=== PATIENT | male | born 1995 | race Caucasian/White ===

== ENCOUNTER → 2019-06-02 13:43 | Outpatient (BNVA) | payer BC, MEDICAID, SELFPAY | PROVIDERS: Family Provider Registered Nurse; PCP Registered Nurse; Visit Provider Registered Nurse | DX: R68.89 Other general symptoms and signs (principal); J06.9 Acute upper respiratory infection, unspecified | CPT/HCPCS: 87804 ==

== ENCOUNTER → 2020-02-24 17:01 | Outpatient (BNVA) | payer BC, MEDICAID, SELFPAY | PROVIDERS: Family Provider Registered Nurse; PCP Registered Nurse; Visit Provider Registered Nurse | DX: R53.83 Other fatigue (principal) | CPT/HCPCS: 80053; 84443; 85025 ==

== ENCOUNTER → 2020-03-10 09:59 | Outpatient (BNVA) | payer BC, MEDICAID, SELFPAY | PROVIDERS: Family Provider Registered Nurse; PCP Registered Nurse; Visit Provider Nurse Practitioner Family | DX: J02.9 Acute pharyngitis, unspecified (principal); J02.8 Acute pharyngitis due to other specified organisms; B96.89 Other specified bacterial agents as the cause of diseases classified elsewhere | CPT/HCPCS: 87880 ==

== ENCOUNTER → 2020-07-05 10:28 | Outpatient (BNVA) | payer BC, MEDICAID, SELFPAY | PROVIDERS: Family Provider Registered Nurse; PCP Registered Nurse; Visit Provider Registered Nurse | DX: R53.83 Other fatigue (principal); F41.9 Anxiety disorder, unspecified; B88.2 Other arthropod infestations | CPT/HCPCS: 80053; 85025; 86618; 86666; 86757 ==